=== PATIENT | female | born 1950 | race Caucasian/White ===

== ENCOUNTER 2024-05-31 11:49 | Outpatient (REF) | payer OTHER, SELFPAY ==
--- OUTSIDE RECORDS SUMMARY | 2024-05-31 12:59 | XMS_ITS | Data Portability ---
Author Organization [facility], [place] in [facility] Address [address] [place] [phone] Care Team Providers Care Wad Compressor Operator Adjuster Name Role Phone HIM CCA OTHER Assessment No assessment recorded. Plan of Treatment Reminders Order Date Submit Date Provider Last Modified By Organization Details Last Modified Time Details Appointments None recorded. Lab rapid flu (A+B) 2023 024 [facility], [address] [place] [address], [phone], 19:19:15 rapid SARS CoV 2 Ag, QL IA, respiratory specimen 2023 024 [facility], [address] [place] [address], [phone], 19:19:13 Referral None recorded. Procedures None recorded. Surgeries None recorded. Imaging None recorded. Medication Orders None recorded. Patient TargetsNo targets recorded. Patient InstructionsNo instructions recorded. Reason for Referral None Reported. Results Created Date Observation Date Name Description Value Unit Range Abnormal Flag Note LastModifiedBy Organization Detail LastModifiedTime 09/03/1909/03/2023 rapid SARS CoV 2 Ag, QL IA, respi rator y speci men rapid SARS CoV 2 Ag, QL IA, respiratory specimen negati ve Not Available [facility] ed [address] [place] [address], [phone], 09/03/2023 19:18:59 09/03/19 24 09/03/2023 rapid flu (A+B) Flu negati ve Not Available [facility] ed [address] [place] [address], [phone], 09/03/2023 19:18:58 Result Notes None recorded. Medical Equipment None Reported. Medications Name Sig Start Date Stop Date Status Note LastModified by Organization Details LastModified Time albuterol sulfate 2.5 mg/3 mL (0.083 %) solution for nebulization INHALE 1 VIAL (3 MLS) VIA NEBULIZER EVERY 6 HOURS active Not Available Not Available No t Available divalproex 250 mg tablet,delay ed release TOME TRUONG TABLETA DOS VECES AL D A active Not Available Not Available No t Available trazodone 50 mg tablet TOME TRUONG TABLETA TODOS LOS D AL ACOSTARSE active Not Available Not Available No t Available cetirizine 10 mg tablet TOME 1 TABLETA POR V A ORAL TODOS LOS D active Not Available Not Available No t Available cetirizine 5 mg tablet TAKE 1 TABLET BY MOUTH ONCE DAILY NEEDED FOR NASAL CONGESTION, DO DRIVING UNTIL USED TO MED active Not Available Not Available No t Available FreeStyle Lancets 28 gauge USE TO TEST BLOOD SUGAR 3 TIMES DAILY DIRECTED active Not Available Not Available No t Available benzonatate 100 mg capsule TAKE 1 CAPSULE BY MOUTH THREE TIMES DAILY active Not Available Not Available Not Available metformin 1,000 mg tablet TOME 1 TABLETA POR V A ORAL DOS VECES AL D A active Not Available Not Available No t Available albuterol sulfate HFA 90 mcg/actuatio n aerosol inhaler INHALE 2 PUFF POR V A ORAL DOS VECES AL D A CUANDO SEA NECESARIO FOR WHEEZING/SH ORTNESS OF BREATH active Not Available Not Available No t Available lisinopril 2.5 mg tablet TOME 1 TABLETA POR V A ORAL TODOS LOS D active Not Available Not Available No t Available FreeStyle Lite Strips USE TO TEST BLOOD SUGAR 3 TIMES DAILY, MONRING, AFTERNOON, AND BEDTIME DIRECTED active Not Available Not Available Not Available Lantus Solostar U-100 Insulin 100 unit/mL (3 mL) subcutaneous pen INJECT 10 UNITS SUBCUTANEOU SLY ONCE DAILY active Not Available Not Available No t Available BD Fay 2nd Gen Pen Needle 32 gauge x USE DIRECTED FOR TYPE 1 DIABETES MELLITUS active Not Available Not Available No t Available Vitals Date Recorded Respiratory rate Oxygen saturation Oxygen saturation in Arterial blood by Pulse oximetry Heart rate Body weight Body temperature Systolic blood pressure Diastolic blood pressure Provider Name and Address Organization Details Last Updated DateTime 4 18 /min 100 % 100 % 86 /min 28294.7 2 g 97.8 [degF] 134 mm[Hg] 80 mm[Hg] Not Available [facility] - production 4 13:54:28 Date Recorded Oxygen saturation Oxygen saturation in Arterial blood by Pulse oximetry Body height Heart rate Body weight Respiratory rate Body temperature Systolic blood pressure Diastolic blood pressure Provider Name and Address Organization Details Last Updated DateTime 100 % 100 % 172.72 cm 79 /min 25950.7 2 g 18 /min 97.9 [degF] 151 mm[Hg] 78 mm[Hg] Not Available [facility] - production 18:34:01 Social History None recorded. Functional Status None recorded. Mental Status None recorded. Family History Nothing Reported. Medical History No medical history recorded. Gynecological HistoryNo gynecological history recorded. Obstetrics History GPAL:G 0 P 0 0 0 0 Past Encounters Encounter ID Performer Location Encounter Start Date Encounter Closed Date Diagnosis/Indication Diagnosis SNOMED-CT Code Diagnosis ICD10 Code Diagnosis Note [id number] Martinez Arechiga MD [facility] [address] [place] [phone] 05/20/2023 13:54:26 05/21/2023 09:41:48 Viral upper respiratory tract infection 487083465 J06.9 this 72-year-ol d female has had a cough productive of white sputum for several days with no fever. Her COVID-19 and flu screens were negative. I suspect she has a viral URI and I recommende d symptomati c treatment with Mucinex. She will follow-up with her PCP for any persistent symptoms. The patient agreed with this plan. [id number] Oscar Carcamo MD [facility] [address] [place] [phone] 09/03/2023 18:33:54 09/04/2023 12:14:23 Viral upper respiratory tract infection [id number] J06.9 Patient reports URI symptoms. Cough with green sputum earlier in the week, now resolved. Viral antigen testing negative. Lungs clear and vitals normal. Encourage symptomati c treatment and PCP follow-up. Health Concerns Section Related Observation LastModified by Organization Detai ls LastModified Time None Recorded Concern Status LastModified by Organization Details LastModified Time None Recorded Advance Directives Directive None Recorded Payers Encounter Date Sequence Insurance Name Policy Number Policy Barragan Covered Member ID Barragan Member ID Guarantor Name 05/20/2023 1 [facility] - DOS ON OR AFTER 2022 - DUAL ELIGIBLE - [facility] [employer] AND ONE CARE (MEDICARE REPLACEMENT/AD VANTAGE - HMO) Sofia Cardoso [id number] Sofia Cardoso 09/03/2023 1 [facility] - DOS ON OR AFTER 2022 - DUAL ELIGIBLE - [facility] [employer] AND ONE C[employer] (MEDICARE REPLACEMENT/AD VANTAGE - HMO) Sofia Cardoso [id number] Sofia Cardoso Notes Date Note Type Note Provider Name and Address Organization Details Recorded Time 05/20/2023 text/html HPI: member is c/o cough , nausea and vomiting x 3 days .................. .................. .................. .................. .................. .................. .................. ............... [facility] Nurse Triage Notes (Ila Moser): Comments: No information needed to process visit Martinez Arechiga MD [address] [place] [address],[address], [place], [phone], [employer] 05/20/2023 14:00:34 09/03/2023 text/html HPI: Member reports symptoms started x1 week .................. .................. .................. .................. .................. .................. .................. ............... [facility] Nurse Triage Notes (Alicia Sewell): Comments: Attempted to call member for additional information- No answer, left Claire N Ehsan RNMember has had symptoms for 1 week of sob/ cough/ fever/ chills. Green sputum in the beginning but less color now, hoarse voice. RN is unsure if she wears o2 , but taking nebs/ inhalers . They are helping but still very hoarse voice. Member has not had any sick contact, unsure If she is taking any OTC Hand Ii Thermal Cutter POC Test Results from [facility] - ALS Rapid COVID antigen (1) [18:50] COVID: - Rapid influenza antigen (1) [18:50] Flu: - Rapid strep test (1) [18:50] Strep: - .................. .................. .................. .................. .................. .................. .................. ............... [facility] Ii Thermal Cutter [facility]. Pt presents conscious and alert at home. Pt French speaking only and her daughter translated for her. Pt reporting worsening asthma symptoms for the last week. Discussed patients asthma and allergy regimen. Some confusion was noted, with questions not being answered directly. Daughter says this has been happening for an entire year and is not a new symptom. Pt has had cough, some green phlegm, and a fever reported 1 week ago. Pt has been taking tylenol for symptoms, no other OTC meds. V/S taken and WNL. Pt afebrile. Pt swabbed for flu covid and strep, all negative. Lung sounds clear. Consulted with [facility] Dr. Carcamo who didn't prescribe any meds. Advised pt continue with supportive care and follow up with PCP next week if still symptomatic. Reviewed red flags for ED. Patient education provided. .................. .................. .................. .................. .................. .................. .................. ............... Disposition: Fulfilled Oscar Carcamo MD [address] [place] [address],[address] [facility], [place], [phone], CHETNA MARQUEZ 09/03/2023 19:19:22 OBGyn Episode No OBEpisode recorded.
--- OUTSIDE RECORDS SUMMARY | 2024-05-31 12:59 | XMS_ITS | Clinical Summary ---
[facility] Address [address] [place] [address] Care Team Providers Care Hims Clerk Name Role Phone Artemio Meehan MD Primary Care Provider Surgical History Surgery Date Site/Laterality Comments SECTION PROCEDURE: HISTORICAL OTHER SURGICAL HISTORY PROCEDURE: HISTORICAL SUPRACERVICAL HYSTERECTOMY W/O BSO COLONOSCOPY 05/21/16 PROCEDURE: HISTORICAL COLONOSCOPY; COMMENT: normal BREAST BIOPSY Right PROCEDURE: BX BREAST; PERC NEEDLE CORE W/IMAG GUID; COMMENT: x2 neg Medical History Medical History Date Comments Type II or unspecified type diabetes mellitus with unspecified complication, not stated as uncontrolled DX:Type II or unspecified ty pe diabetes mellitus with unspecified complication, not stated as uncontrolled Arthritis 05/12/2012 DX:Arthritis; CO MMENT: Fingers and toes Asthma 03/08/2014 DX:Asthma Carpal tunnel syndrome 06/08/2014 DX:Carpal tunnel syndrome Hyperlipidemia 06/16/2014 DX:Hyperlipidemi a Type II diabetes mellitus wi th neurological manifestations, uncontrolled 05/12/2012 DX:Type II diabetes mellitus with neurological manifestations, uncontrolled Anxiety 05/30/2016 DX:Anxiety Illiteracy 02/16/2018 DX:Illiteracy Osteopenia 04/06/2018 DX:Osteopenia Family History Medical History Relation Name Comments Stroke Father Breast cancer Maternal Grandmother great grandmother Hypertension Mother Breast cancer Sister 62 Diabetes Sister 62 Blindness Neg Hx Cataracts Neg Hx Glaucoma Neg Hx Macular degeneration Neg Hx Strabismus Neg Hx Relation Name Status Comments Father Maternal Grandfather Maternal Grandmother great grandmother Mother Paternal Grandfather Paternal Grandmother Sister 62 Social History Tobacco Use Types Packs/Day Years Used Date Smoking Tobacco: Former Cigarettes Q uit: 05/04/1982 Smokeless Tobacco: Former Alcohol Use Standard Drinks/Week Comments Yes 0 (1 standard drink = 0.6 oz pur e alcohol) Sex and Gender Information Value Date Recorded Sex Assigned at Not on file Gender Identity Not on file Sexual Orientation Not on file Obstetrics History Plan of Treatment Health Maintenance Due Date Last Done Comments Diabetes: Annual GFR (Glomerular Filtration Rate) 1950 Diabetes: Annual Foot Exam 1962 Diabetes: Annual Retina Eye Exam 1962 Zoster Vaccines (1 of 2) 2002 RSV Immunization Patients 60 + Years Old (1 - Risk 60-74 years 1-dose series) 2012 Cholesterol Screening (Lipid Panel) 04/06/2022 Colorectal Cancer Screening: Colonoscopy 04/06/2022 Depression Screening 04/06/2022 Falls Risk Assessment 04/06/2022 Hepatitis C Screening 04/06/2022 Social Influencers of Health Screening 04/06/2022 Diabetes: Annual Urine Albumin-Creatinine Ratio (uACR) 04/18/2022 Diabetes: Blood Sugar Contro l Test (HGBA1C) 04/18/2022 DTaP,Tdap,and Td Vaccines (2 - Td or Tdap) 09/28/2023 09/27/2013 COVID-19 Vaccine (1 - 2023-2 5 season) 2024 Influenza Vaccine (#1) 2024 8, 03/24/2017 Breast Cancer Screening 06/08/2025 06/08/19 24, 03/03/2018, 11/19/2016 Osteoporosis Screening (Bone Density Screening) 04/05/2028 04/05/2018 Pneumococcal Vaccine: 65+ Years Completed 02/16/2018, 11/21/2015 HIB Vaccines Aged Out No longer eligi ble based on patient's age to complete this topic HPV Vaccines Aged Out No longer eligi ble based on patient's age to complete this topic Hepatitis A Vaccines Aged Out No long er eligible based on patient's age to complete this topic Hepatitis B Vaccines Aged Out No long er eligible based on patient's age to complete this topic IPV Vaccines Aged Out No longer eligi ble based on patient's age to complete this topic MMR Vaccines Aged Out No longer eligi ble based on patient's age to complete this topic Meningococcal ACWY Vaccine Aged Out N o longer eligible based on patient's age to complete this topic RSV Immunization Patients Under 20 months Aged Out No longer eligible b ased on patient's age to complete this topic Varicella Vaccines Aged Out No longer eligible based on patient's age to complete this topic Procedures Procedure Name Priority Date/Time Associated Diagnosis Comments PINKY SCREENING DIGITAL Routine 06/08/2023 1:18 PM EST Encounter for screening mammogram for malignant neoplasm of breast DXA BONE DENSITY STUDY 1+ SITS AXIAL SKEL Routine 04/05/2018 11:52 AM EST Encounter for screening for osteoporosis from Last 3 Months or Most Recently Relevant to Health Maintenance Results * PINKY SCREENING DIGITAL (06/08/2023 1:18 PM EST) Anatomical Region Laterality Modality Mammography 06/08/2023 11:1 2 AM EST Narrative 06/08/2023 1:18 PM EST [facility] Diagnostic Imaging Department [address] [place] [id number] Patient: ??WALTER DOLAN ?/Age/Sex: 1950 - 72 - F Unit#: ??[id number] ? Location/Status: ??SPDIMAM/REG CLI ? Mnemonic/Ordering Site: ??DIGSC/SPMAM Ordering Physician: ??CONSTANCE TURPIN DO Pinky Screening Digital - 06/08/23 - 1155 Report Status:Signed EXAM: Pinky Screening Digital EXAM DATE AND TIME: 06/08/2023 11:56 AM HISTORY: ??Annual screening COMPARISON: Multiple exams dating back to 2008 TECHNIQUE: Bilateral digital breast tomosynthesis was performed in the CC and MLO projections. Computer aided detection with SimuForm 3D 3.1 was employed. TISSUE DENSITY: b. There are scattered areas of fibroglandular density. FINDINGS: No suspicious masses, grouped microcalcifications, or areas of architectural distortion are seen. The skin and vascularity are unremarkable. IMPRESSION: Stable mammographic appearance of the breasts. ??No evidence of malignancy is seen. A negative mammogram in the presence of a clinically suspicious palpable abnormality does not preclude the possibility of malignancy or alter the indications for biopsy. BI-RADS: ??Category 1: Negative RECOMMENDATION(S): 1: Routine screening mammogram BILATERAL in 1 year. 3341F, 7093F Dictating Physician: ??SHANA ABREU MD Electronically Signed by: ??SHANA ABREU MD Dic Date/Time: ??06/08/23 1317 Sign date/Time: ??06/08/23 1318 Procedure Note Shana Abreu MD - 12/21/2023 [facility] Diagnostic Imaging Department [address] [place] [address] Patient: WALTER DOLAN./Age/Sex: 1950 - 72 - F Unit#: [id number] [facility]Ordering Site: [facility] Ordering Physician: CONSTANCE TURPIN DO Pinky Screening Digital - 06/08/23 - 1155 Report Status:Signed EXAM: [facility] Screening Digital EXAM DATE AND TIME: 06/08/2023 11:56 AM HISTORY: Annual screening COMPARISON: Multiple exams dating back to 2008 TECHNIQUE: Bilateral digital breast tomosynthesis was performed in the CCand MLO projections. Computer aided detection with SimuForm 3D 3.1was employed. TISSUE DENSITY: b. There are scattered areas of fibroglandular density. FINDINGS: No suspicious masses, grouped microcalcifications, or areas ofarchitectural distortion are seen. The skin and vascularity are unremarkable. IMPRESSION: Stable mammographic appearance of the breasts. No evidence of malignancyis seen. A negative mammogram in the presence of a clinically suspicious palpable abnormality does not preclude the possibility of malignancy or alter the indications for biopsy. BI-RADS: Category 1: Negative RECOMMENDATION(S): 1: Routine screening mammogram BILATERAL in 1 year. 3341F, 7025F Dictating Physician: SHANA ABREU MD Electronically Signed by: SHANA ABREU MD Dic Date/Time: 06/08/23 1317 Sign date/Time: 06/08/23 1318 Constance Turpin DO IMG BI PROCEDURES * DXA BONE DENSITY STUDY 1+ SITS AXIAL SKEL (04/05/2018 11:52 AM EST) Anatomical Region Laterality Modality Bone Densitometr y 10/28/2017 4:01 PM EDT Narrative 04/05/2018 4:41 PM EST BONE DENSITY ? Lumbar Spine T-score is -1.8 ?? (SD relative to 20-29 y/o adult) Z-score is +0.1 ??(SD relative to age matched peers) This is consistent with osteopenia by criteria defined by the WHO. Left Hip T-score is -1.0 Z-score is +0.3 This is normal by criteria defined by the WHO. Comparison exam(s): significant decrease in bone density of ??hip and lumbar spine when compared to most recent bone density examination ?? Confidence level is +/-95%. Impression: Based on the World Health Organization criteria, Walter Dolan should be classified as having osteopenia. This patient has a 4.3% risk of major osteoporotic fracture and a 0.3% risk of hip fracture over the next 10 years. (World Health Organization Fracture Risk Assessment) [facility] Department of Internal Medicine recommends using National Osteoporosis Foundation (NOF) guidelines in treatment decisions related to osteoporosis. NOF guidelines suggest considering treatment for postmenopausal women and men aged 50 or older presenting with the following: History of hip or vertebral fracture. T-score less than or equal to -2.5 (DXA) at the femoral neck, total hip, or spine, after appropriate evaluation to exclude secondary causes. Low bone mass (T-score between -1.0 and -2.5 at the femoral neck or spine) AND a 10-year probability of a hip fracture greater than or equal to 3% OR a 10-year probability of a major osteoporosis-related fracture greater than or equal to 20% based on the [place]-adapted WHO algorithm Please note that all treatment decisions require clinical judgment and consideration of individual patient factors, including patient preferences, co-morbidities, previous drug use, risk factors not captured in the FRAX model (e.g., frailty, falls, vitamin D deficiency, increased bone turnover, interval significant decline in bone density) and possible under- or over-estimation of fracture risk by FRAX. Procedure Note Michelle Degroot MD - 05/08/2022 BONE DENSITY Lumbar Spine T-score is -1.8 (SD relative to 20-29 y/o adult) Z-score is +0.1 (SD relative to age matched peers) This is consistent with osteopenia by criteria defined by the WHO. Left Hip T-score is -1.0 Z-score is +0.3 This is normal by criteria defined by the WHO. Comparison exam(s): significant decrease in bone density of hip andlumbar spine when compared to most recent bone density examination Confidence level is +/-95%. Impression: Based on the World Health Organization criteria, Walter Dolan should beclassified as having osteopenia. This patient has a 4.3% risk of majorosteoporotic fracture and a 0.3% risk of hip fracture over the next 10years. (World Health Organization Fracture Risk Assessment) [facility] Department of Internal Medicine recommendsusing National Osteoporosis Foundation (NOF) guidelines in treatmentdecisions related to osteoporosis. NOF guidelines suggest consideringtreatment for postmenopausal women and men aged 50 or older presentingwith the following: History of hip or vertebral fracture. T-score less than or equal to -2.5 (DXA) at the femoral neck, total hip,or spine, after appropriate evaluation to exclude secondary causes. Low bone mass (T-score between -1.0 and -2.5 at the femoral neck or spine)AND a 10-year probability of a hip fracture greater than or equal to 3% ORa 10-year probability of a major osteoporosis-related fracture greaterthan or equal to 20% based on the [place]-adapted WHO algorithm Please note that all treatment decisions require clinical judgment andconsideration of individual patient factors, including patientpreferences, co-morbidities, previous drug use, risk factors not capturedin the FRAX model (e.g., frailty, falls, vitamin D deficiency, increasedbone turnover, interval significant decline in bone density) and possibleunder- or over-estimation of fracture risk by FRAX. Artemio Meehan MD IM DXA PROCEDU RES from Last 3 Months or Most Recently Relevant to Health Maintenance Care Teams Hims Clerk Relationship Specialty Start Date End Date Artemio Meehan MD [address] [place] [address] PCP - General Internal Medicine 11/16/15
--- OUTSIDE RECORDS SUMMARY | 2024-05-31 12:59 | XMS_ITS | Clinical Summary ---
Author Organization [facility] Address [address] [place] [address] Care Team Providers Care Ethyl Blender Name Role Phone Unavailable Primary Care Provider Unavailabl e Source Comments PLEASE NOTE, if this patient is a minor, it may be UNLAWFUL to discuss sensitive information that is contained in these records (such as FAMILY PLANNING, MENTAL HEALTH or SUBSTANCE ABUSE) with the minor patient's parent or other person without the patient's specific authorization.[facility] Allergies Active Allergy Reactions Criticality Noted Date Comments Penicillins 10/08/2021 Medications loratadine (CLARITIN) 10 mg tablet TOME TRUONG TABLETA TODOS LOS D? 4 9 Active acetaminophen (TYLENOL) 325 mg tabletIndications :Arthritis Take 2 Tabs by mouth every 6 (six) hours as needed for pain 60 Tab 3 9 Active estradiol (ESTRACE) 0.01 % (0.1 mg/gram) vaginal creamIndications: Vaginal dryness, menopausal Place 2 g vaginally nightly at bedtime 42.5 g 3 9 Active hydrocortisone 2.5 % creamIndications: Psoriasis Apply topically 2 (two) times daily On bilateral elbow 30 g 2 9 Active lancets (FREESTYLE LANCETS) 28 gaugeIndications: Type 2 diabetes mellitus with complication, without long-term current use of insulin ([facility]) E11 DIABETES: Freestyle ONE BEFORE EVERY BREAKFAST AND AT BEDTIME 100 Each 11 9 Active blood sugar diagnostic (FREESTYLE TEST) stripsIndications :Type 2 diabetes mellitus with complication, without long-term current use of insulin ([facility]) 1 Strip as needed for high blood sugar E11 DIABETES: 2 TIMES DAILY BEFORE BREAKFAST AND AT BEDTIME Freestyle 120 Each 11 9 Active fluticasone propionate (FLONASE) 50 mcg/actuation nasal sprayIndications: Allergic rhinitis, unspecified seasonality, unspecified trigger Place 1 [place] in both nostrils once daily 16 g 9 Active ibuprofen (ADVIL,MOTRIN) 600 mg tabletIndications :Sore throat Take 1 Tab by mouth 3 (three) times daily as needed for pain 40 Tab 9 Active oxymetazoline (AFRIN) 0.05 % nasal sprayIndications: Nasal congestion Place 2 Sprays into the nostril(s) 2 (two) times daily 15 mL 9 Active blood-glucose meter monitoring kitIndications:Ty pe 2 diabetes mellitus with complication, without long-term current use of insulin ([facility]) as needed for blood glucose monitoring E11.8 Type 2 diabetes mellitus: Freestyle 1 Kit 9 Active albuterol sulfate 90 mcg/actuation inhalerIndication s:Mild intermittent asthma, unspecified whether complicated Inhale 2 Puffs into the lungs every 4 to 6 (four to six) hours as needed for shortness of breath or wheezing 1 Inhaler 3 0 Active BD ULTRA-FINE ANGEL PEN NEEDLE 32 gauge x /32 ndleIndications:T ype 2 diabetes mellitus with complication, without long-term current use of insulin ([facility]) USE 1 PEN NEEDLE BEFORE BREAKFAST AND AT BEDTIME 100 Each 2 0 Active metFORMIN (GLUCOPHAGE) 1,000 mg tabletIndications :Type 2 diabetes mellitus with complication, without long-term current use of insulin ([facility]) TOME TRUONG TABLETA DOS VECES AL DL CON ALIMENTO 60 Tablet 1 Active cholecalciferol, vitamin D3, 10 mcg (400 unit) tablet Take 10 mcg by mouth 1 Active diclofenac sodium (VOLTAREN) 1 % gel See Instructions, APPLY TOPICALLY CUATRO VECES AL DL, # 100 Gm, 1 Refills, Maintenance, [id number], 30, APPLY TOPICALLY CUATRO VECES AL DL, 155, cm, 02/21/20 13:48:00 EDT, Height 1 Active lisinopriL 2.5 mg tablet TOME TRUONG TABLETA TODOS LOS D 2 Active vitamin E 400 unit capsule Take 180 mg by mouth 1 Active cetirizine (ZYRTEC) 5 mg tablet TOME TRUONG TABLETA POR V A ORAL TODOS LOS D CUANDO SEA NECESARIO FOR NASAL CONGESTION. 2 Active insulin glargine (LANTUS) 100 unit/mL injection Inject 10 Units into the skin 2 Active Active Problems Problem Noted Date Diagnosed Date Carpal tunnel syndrome 10/08/2021 Non-Comoran speaking patient 12/17/2018 Overview (12/17/2018): 12/17/18 - [facility]'s bark press operator services were used to facilitate patient communication this visit. Current non-smoker 12/17/2018 Overview (12/17/2018): 12/17/18 - Patient denies status as a cigarette smoker. Housing problems 12/17/2018 Overview (12/17/2018): 12/17/18 - Patient reports Vaginal dryness, menopausal 08/02/2018 Psoriasis 08/02/2018 Overview (08/02/2018): To bilateral elbow Arthritis 07/05/2018 Type 2 diabetes mellitus, wi th long-term current use of insulin ([facility]) 07/05/2018 Asthma 07/05/2018 Class 1 obesity without serious comorbidity in a dult 07/05/2018 Immunizations Name Administration Dates Next Due Flu, Cell Culture based, Mul ti Dose, 6m+, Flucelvax 03/24/2017 Hep B, Adult/Adol (ENERGIX/RECOMBIVAX) 9,09/01/2018,08/02/2018 Influenza (FLUZONE), high-do se, trivalent, PF 02/16/2018 PNEUMOCOCCAL CONJUGATE PCV 13 07/05/2018, 016 PNEUMOCOCCAL POLYSACCHARIDE PPV23 02/16/2018 TDAP 01/10/2021,09/27/2013 Family History Medical History Relation Name Comments Cancer Father Asthma Mother Depression Mother Heart Problems Mother Relation Name Status Comments Father Mother Alive Social History Tobacco Use Types Packs/Day Years Used Date Smoking Tobacco: Never Smokeless Tobacco: Never Tobacco Cessation:Counseling Given: Yes Alcohol Use Standard Drinks/Week Comments Yes 0 (1 standard drink = 0.6 oz pur e alcohol) Social Connections Answer Date Recorded Connectedness 0 10/08/2021 Financial Resource Strain Answer Date R ecorded Financial Resource Strain 0 2021 Stress Answer Date Recorded Stress 0 10/08/2021 Physical Activity Answer Date Recorded Physical Activity 0 12/22/2018 Food Insecurity Answer Date Recorded Food 0 10/08/2021 Transportation Needs Answer Date Record ed Transportation 0 10/08/2021 Housing Stability Answer Date Recorded Housing 0 10/08/2021 Safety and Environment Answer Date Bharath rded Safety 0 10/08/2021 Utilities Answer Date Recorded Utilities 0 10/08/2021 Employment Answer Date Recorded Employment 0 12/22/2018 Comments No Sex and Gender Information Value Date Recorded Sex Assigned at Female 07/05/2018 10:20 AM PST Legal Sex Female 10:55 AM PDT Gender Identity Female 07/05/2018 10:20 AM PST Sexual Orientation Straight 07/05/2018 10 :20 AM PST Last Filed Vital Signs Vital Sign Reading Time Taken Comments Blood Pressure 138/90 10/08/2021 10:40 AM EDT Pulse 78 10/08/2021 10:40 AM EDT Temperature 36.8 ??C (98.3 ??F) 10/08/2021 10:40 AM E DT Respiratory Rate 16 10/08/2021 10:40 AM EDT Oxygen Saturation 99% 10/08/2021 10:40 AM EDT Inhaled Oxygen Concentration - - Weight 69.9 kg (154 lb) 10/08/2021 10:40 AM EDT Height 152.4 cm (5') 10/08/2021 10:40 AM EDT Body Mass Index 30.08 10/08/2021 10:40 AM EDT Plan of Treatment Health Maintenance Due Date Last Done Comments Dental Examination 1952 Tobacco Screening 1950 Medicare Annual Wellness Visit 1970 Breast Cancer Screening (Mammogram) 1992 CT Colonography 1997 Colonoscopy 1997 Fecal DNA 1997 Flexible Sigmoidoscopy 1997 Imm-Zoster, Recombinant (1 of 2) 2002 Bone Density Screening 2017 Colorectal Cancer Screening 09/11/2019 FIT/gFOBT 09/11/2019 09/10/2018, 08/27/2018 Falls Prevention 10/08/2022 10/08/2021 Hypertension Screening (#1) 10/08/2022 [id number] ( season) 2024 10/30/2021, 09/07/2020, 08/17/2020 Imm-Influenza (#1) 2024 02/16/2018, 03/24/2017 Alcohol and Drug Screen 05/04/2024 10/09/19 22, 02/04/2019, 07/05/2018 Depression Annual Screen 05/04/2024 Lipid Screening 11/20/2024 11/21/2019, 07/13/2018 Imm-DTaP/Tdap/Td (3 - Td or Tdap) 01/10/2031 021, 09/27/2013 Imm-Pneumococcal 65+ Completed 07/05/2018, 02/16/2018, 11/21/2015 Hepatitis C Screening Completed 08/02/2018 Procedures Procedure Name Priority Date/Time Associated Diagnosis Comments LIPID PANEL Routine 11/21/2019 12:00 AM EDT Type 2 diabetes mellitus with complication, without long-term current use of insulin ([facility]) FECAL OCCULT BLOOD HEMOCCULT X3, [place] (POCT) Routine 09/10/2018 3:22 PM EDT HEPATITIS C ANTIBODY Routine 08/02/2018 3:43 PM EDT Encounter for hepatitis C screening test for low risk patient from Last 3 Months or Most Recently Relevant to Health Maintenance Results * (ABNORMAL) LIPID PANEL (11/21/2019 12:00 AM EDT) CHOLESTEROL 211(H) 0 - 200 mg/dL [facility] TRIGLYCERIDES 98 0 - 150 mg/dL [facility] HDL CHOLESTEROL 75 >40 mg/dL [facility] LDL CALCULATED 117(H) 0 - 100 mg/dL [facility] TC-HDLC RATIO 2.8 0 - 4.4 mg/dL [facility] Blood specimen (specimen) Blood / Unknown 11/21/2019 11/21/2019 5:21 PM EDT Narrative [facility] - 11/21/2019 6:49 PM EDT [employer], [place] [address] Livestock Sales Representative - Sofia Neri MD PT ID [id number] ORD# [id number] Venus Cesar PA-C LAB - BLOOD DRAW Edited R esult - Final [address] [address], * FECAL OCCULT BLOOD HEMOCCULT X3, [place] (POCT) (09/10/2018 3:22 PM EDT) FECAL OCCULT BLOOD NEGATIVE NEGATIVE [facility] POCT FECAL OCCULT BLOOD #2 NEGATIVE NEGATIVE [facility] POCT FECAL OCCULT BLOOD #3 NEGATIVE NEGATIVE [facility] POCT Stool specimen (specimen) Stool specimen / Unknown 09/10/2018 3:22 PM EDT Ranjit Hernandez NP LAB - BLOOD DRAW Final Result [facility] * HEPATITIS C ANTIBODY (08/02/2018 3:43 PM EDT) HEPATITIS C VIRUS SCREEN NEGATIVE NEGATIVE [facility] Blood specimen (specimen) Blood / Unknown 08/02/2018 3:43 PM EDT 08/02/2018 10:19 PM EDT Narrative [facility] - 08/03/2018 12:43 AM EDT [employer], a member of [address] [address] Livestock Sales Representative - Vonda Bejarano MD PT ID [id number] ORD# [id number] Ranjit Hernandez NP LAB - BLOOD DRAW Final Result [facility] [address] [place] [address], from Last 3 Months or Most Recently Relevant to Health Maintenance Insurance HE[employer]AF[employer]Y NET DENTAL MEDICAID DENTAL [facility] Member Subscriber Plan / Payer (Ef fective 2019-Present) Name:Sofia Cardoso Relation to Subscriber:Self Name:Sofia Cardoso Payer ID:[id number] Group ID:Not on file Type:Indemnity Address: [address] [place] [id number]
== END 2024-05-31 11:50 | disposition home or self-care (01) ==
LOC: HO.SH 11:49
PROVIDERS: Visit Provider Nurse Practitioner Family
DX: Z01.118 Encounter for examination of ears and hearing with other abnormal findings (principal); H90.3 Sensorineural hearing loss, bilateral
CPT/HCPCS: 92557